=== PATIENT | female | born 1970 ===

== ENCOUNTER 2021-07-22 17:28 | Observation (INO) | payer OTHER ==
[~2021-07-22] VITALS: Ht 160 cm; Wt 67.9 kg
[2021-07-22 18:26] VITALS: BP 122/74; PULSE 64; TEMP 98
[2021-07-22] MEDS ORDERED: SYNTHROID0.125 MG/T PO (20:18)
[2021-07-22] MEDS ORDERED: ZOLOFT 100MG100 MG PO (20:19)
[2021-07-22] MEDS ORDERED: SEROQUEL400 MG (20:20)
[2021-07-22] MEDS ORDERED: AMBIEN 10MG10 MG PO (20:21)
[2021-07-22] MEDS ORDERED: ZESTRIL 10MG10 MG PO (20:21)
--- NOTE | 2021-07-22 20:25 | NUR ---
PT. ADMITTED AND ORIENTED TO ROOM 350. ASSESSMENT COMPLETE. PT. A&O. COMPLAINING OF ABDOMEN PAIN THAT RADIATES TO LOWER CHEST. PROVIDER HAS BEEN IN TO SEE PT. SEE ORDERS. CALL LIGHT IN REACH. NO FURHTER NEEDS AT THIS TIME.
[2021-07-22 23:40] VITALS: BP 99/59; PULSE 69; TEMP 98.7
[2021-07-22] MEDS ORDERED: SEROQUEL XR400 M1 PO (23:49)
[2021-07-22] MEDS ORDERED: PROTONIX 40MG T40 MG PO (23:51)
[2021-07-22] MEDS ORDERED: MAXALT MLT10 MG/TAB PO (23:52)
[2021-07-22] MEDS ORDERED: CLARITIN 1010 MG/TAB PO (23:52)
[2021-07-22 23:58] LABS: BASO % 0.2 % (0.0-2.0); EOS # 0.1 K/mm3 (0.0-0.7); EOS % 0.7 % (0.0-4.0); GRAN # 7.1 K/mm3 (1.4-6.5); GRAN % 63.8 % (42.2-75.2); HEMOGLOBIN 10.2 g/dl (12.5-16.0); LYMPH # 2.8 K/mm3 (1.2-3.4); LYMPH % 25.3 % (20.0-51.0); MEAN CELL VOLUME 84 fl (80.0-100.0); MEAN CORPUSCULAR HEMOGLOBIN 28 pg (27-31); MEAN CORPUSCULAR HGB CONC 33 g/dl (33.0-37.0); MEAN PLATELET VOLUME 8.7 fl (7.4-10.4); MONO % 9.2 % (1.7-9.3); PLATELET COUNT 347 K/mm3 (130-400); RED BLOOD COUNT 3.66 M/mm3 (4.10-5.30); REDCELL DISTRIBUTION WIDTH-CV 13.5 % (11.5-14.5)
[2021-07-23 00:09] LABS: HEMATOCRIT 30.7 % (37.0-47.0)
[2021-07-23 00:24] LABS: TROPONIN-I 0.013 ng/mL (0.00-0.033)
[2021-07-23 00:45] LABS: ALBUMIN 3.1 gm/dL (3.5-5.0); BILIRUBIN,TOTAL 0.2 mg/dL (0.2-1.2); CALCIUM 6.7 mg/dL (8.4-10.2); CREATININE, serum 0.72 mg/dL (0.57-1.11); TOTAL PROTEIN 6.4 gm/dL (6.2-8.1)
[2021-07-23 00:50] LABS: POTASSIUM 2.8 mmol/L (3.5-4.5)
--- NOTE | 2021-07-23 00:51 | NUR ---
LAB CALLED WITH [facility].8. RABIA WAS NOTIFIED AND ORDERS PLACED.
[2021-07-23 04:04] VITALS: BP 114/65; PULSE 63; TEMP 98.4
[2021-07-23 05:55] LABS: HEMOGLOBIN 11.1 g/dl (12.5-16.0); MEAN CELL VOLUME 85 fl (80.0-100.0); MEAN CORPUSCULAR HEMOGLOBIN 28 pg (27-31); MEAN CORPUSCULAR HGB CONC 33 g/dl (33.0-37.0); MEAN PLATELET VOLUME 8.9 fl (7.4-10.4); PLATELET COUNT 396 K/mm3 (130-400); RED BLOOD COUNT 4.01 M/mm3 (4.10-5.30); REDCELL DISTRIBUTION WIDTH-CV 13.6 % (11.5-14.5)
[2021-07-23 06:03] LABS: HEMATOCRIT 34.2 % (37.0-47.0)
[2021-07-23 06:27] LABS: ALBUMIN 3.1 gm/dL (3.5-5.0); BILIRUBIN,TOTAL 0.2 mg/dL (0.2-1.2); CALCIUM 6.6 mg/dL (8.4-10.2); CREATININE, serum 0.75 mg/dL (0.57-1.11); POTASSIUM 3.7 mmol/L (3.5-4.5); TOTAL PROTEIN 6.5 gm/dL (6.2-8.1)
[2021-07-23 07:06] LABS: BAND 3 % (0-10); EOSINOPHIL 1 % (0-4); LYMPHOCYTE 25 % (20.0-51.0); METAMYELOCYTE 1 % (0-0); NEUTROPHILS 62 % (42.0-75.2)
[2021-07-23 07:07] LABS: PLATELET ESTIMATE NORMAL (NORMAL)
[2021-07-23 07:16] VITALS: BP 125/74; PULSE 858; TEMP 98
--- NOTE | 2021-07-23 07:33 | NUR ---
Patient to [facility] scan per orders. She has been NPO. She reports feeling terrible this am. Zofran given prior to scan, unable to given narcotics per protocol. She was up to the bathroom & voided. Will monitor.
--- NOTE | 2021-07-23 09:45 | NUR ---
Patient has returned from scan. made aware, also dicussed holding lovenox with him. poultry service technician also made aware of her return. Patient did receive pain medication while in scan. She reports is helped with her abdominal pain, but she still has head and neck pain, k pad provided for her and blinds closed to make room dark. Continue with k+ replacement, at half rate due to burning at IV site from K+. She remains Npo, am medication held, patietn thinks she would vomit them up anyways. Will monitor closely.
--- NOTE | 2021-07-23 11:44 | NUR ---
rounded. Plan of care reviewed. Attempted to give magic mouthwash, but did nauseated patient. Patient reports Kpad helped with her migraine, she did not want immetrex at this time that was ordered. Made her aware of stool sample ordered. Clear liquids ordered, sprite provided per request. Ivf K+ replacement continues as well and antibioitcs as ordered. Ekg completed, scho to be done, chest xray to be done as well.
[2021-07-23 11:47] VITALS: BP 129/77; PULSE 69; TEMP 98.3
--- NOTE | 2021-07-23 15:30 | NUR ---
Patient resting in bed. Her spouse at bedside. Dr. Matthews & have rounded, plan of care reviewed. Last bag of K+ given. will reschedule, K+ level check. Patient has tolerated clears without emesis, but did request zofran. Will continue to monitor.
[2021-07-23 16:00] VITALS: BP 121/79; PULSE 86; TEMP 98.7
--- NOTE | 2021-07-23 16:29 | NUR ---
floorworker lasting met with patient to complete intake. Patients Alexis ([phone]) present at bedside. Patient is independent with her ADL's and does not utilize any DME to assist with mobility. No home oxygen needs. She primary care's at [facility] and she gets her perscriptions at [facility]. Patient does not have a DPOA-HC established and is not interested in establishing one at this time.Patient is planning on returning home with no concerns. Discharge plan: Home
--- NOTE | 2021-07-23 18:14 | NUR ---
Patient resting in bed. Scds off at this time due to being hot. She was up to the bathroom & voided. We discussed importance of using IS to keep lungs clear, she verbalized understanding & going to try to use more regularly. Sprite provided, broth did not settle. She denies the need for pain & nausea medication at this time. Will report off to nightnurse
[2021-07-23 19:55] VITALS: BP 140/77; PULSE 63; TEMP 98.8
--- NOTE | 2021-07-23 20:46 | NUR ---
ASSSESSMENT COMPLETE. PT. LYING IN BED. A&O. IV SITE PATENT WITH FLUIDS, POTASSIUM, AND ANTIBIOTIC FLOWING. PT. WALKED TO BATHROOM TO VOID. STEADY GAIT. PT. EXPRESSED DESIRE TO REST. NO FURHTER NEEDS AT THIS TIME. CALL LIGHT IN REACH.
[2021-07-24 00:31] VITALS: BP 117/62; PULSE 61; TEMP 98.7
[2021-07-24 04:18] VITALS: BP 115/70; PULSE 59; TEMP 99
[2021-07-24 06:10] LABS: BASO % 0.2 % (0.0-2.0); EOS # 0.2 K/mm3 (0.0-0.7); EOS % 2.1 % (0.0-4.0); GRAN # 5.5 K/mm3 (1.4-6.5); GRAN % 62.9 % (42.2-75.2); HEMOGLOBIN 11.3 g/dl (12.5-16.0); LYMPH # 2.2 K/mm3 (1.2-3.4); MEAN CELL VOLUME 85 fl (80.0-100.0); MEAN CORPUSCULAR HEMOGLOBIN 28 pg (27-31); MEAN CORPUSCULAR HGB CONC 32 g/dl (33.0-37.0); MEAN PLATELET VOLUME 8.7 fl (7.4-10.4); MONO # 0.8 K/mm3 (0.1-0.6); PLATELET COUNT 391 K/mm3 (130-400); REDCELL DISTRIBUTION WIDTH-CV 13.5 % (11.5-14.5)
[2021-07-24 06:26] LABS: ALBUMIN 2.9 gm/dL (3.5-5.0); BILIRUBIN,TOTAL 0.3 mg/dL (0.2-1.2); C-REACTIVE PROTEIN 5.55 mg/dL (0.00-0.50); CALCIUM 7.2 mg/dL (8.4-10.2); CREATININE, serum 0.67 mg/dL (0.57-1.11); MAGNESIUM 1.8 mg/dL (1.6-2.6); TOTAL PROTEIN 6.2 gm/dL (6.2-8.1)
[2021-07-24 06:46] LABS: TSH w REFLEX 3.144 uIU/mL (0.350-4.940)
--- NOTE | 2021-07-24 07:37 | NUR ---
Patient stand by assist to the chair this am. Coughing & deep breathing & using Is encouraged. Patient interested in yogurt and or oatmeal this am. Nausea is improved. Pain also improved today, denies migraine but, slight headache. Also slight abdominal cramping, but not wanting medication this am. Sprite & ice chips provided. Overall patient in better spirits today. Will monitor
[2021-07-24 07:57] VITALS: BP 103/70; PULSE 76; TEMP 98.8
--- NOTE | 2021-07-24 09:26 | NUR ---
Patient continues to sit up in chair, she is slowly working on low fat breakfast. rounded plan of care reviewed. We discussed taking a shower today & she is intersted later. Will monitor.
--- NOTE | 2021-07-24 11:01 | NUR ---
Patient Iv to Int per orders. Patient up to shower, her brought fresh under garments. He is going to assist with shower. Patient provided with privacy. Will monitor.
[2021-07-24 12:00] VITALS: BP 108/71; PULSE 77; TEMP 98.2
--- NOTE | 2021-07-24 13:50 | NUR ---
Patient sitting up in chair. Low fat lunch ordered. Patient reports abdominal cramping, one tab norco given per request for the pain. She is concerned eating will make it worse. Patient Gi sample was sent to lab, reported positive to Edith dias & also made aware. I spoke with Nayeli in lab & Cdiff Toxin to be ran per to confirm. Will await the results
[2021-07-24 14:11] LABS: CLOSTRIDIUM DIFF A/B NEG; CLOSTRIDIUM DIFF A/B INTERP NonToxigenic C.diff
[2021-07-24 15:51] VITALS: BP 132/77; PULSE 64; TEMP 98.4
--- NOTE | 2021-07-24 18:13 | NUR ---
Patient up independent in room. Eating her low fat dinner tray. Sprite & ice water provided. No other needs. Will report off to nightnurse
[2021-07-24 20:05] VITALS: BP 120/75; PULSE 87; TEMP 98.1
--- NOTE | 2021-07-24 20:22 | NUR ---
ASSESSMENT COMPLETE. PT. SITTING UP IN BED. A&O. COMPLAINING OF PAIN 3/10 TO ABDOMEN. ANTIOBITICS FLOWING INTO RIGHT AC. REPORTED WALKING AROUND ROOM AND USING INCENTIVE SPIROMETER REGURALLY. NO FURTHER NEEDS AT THIS TIME. CALL LIGHT IN REACH.
[2021-07-25 00:10] VITALS: BP 106/63; PULSE 74; TEMP 97.6
[2021-07-25 04:38] VITALS: BP 121/69; PULSE 62; TEMP 98
--- NOTE | 2021-07-25 05:24 | NUR ---
PT. HAD A QUITE NIGHT SLEEPING. NO NEEDS THROUGHOUT THE NIGHT.
[2021-07-25 07:04] LABS: CREATININE, serum 0.63 mg/dL (0.57-1.11); POTASSIUM 3.9 mmol/L (3.5-4.5)
[2021-07-25 07:07] LABS: BASO % 0.3 % (0.0-2.0); EOS # 0.2 K/mm3 (0.0-0.7); EOS % 2.5 % (0.0-4.0); GRAN # 5.6 K/mm3 (1.4-6.5); GRAN % 59.2 % (42.2-75.2); HEMOGLOBIN 11.6 g/dl (12.5-16.0); LYMPH # 2.5 K/mm3 (1.2-3.4); LYMPH % 26.3 % (20.0-51.0); MEAN CELL VOLUME 84 fl (80.0-100.0); MEAN CORPUSCULAR HEMOGLOBIN 28 pg (27-31); MEAN CORPUSCULAR HGB CONC 33 g/dl (33.0-37.0); MEAN PLATELET VOLUME 8.8 fl (7.4-10.4); MONO % 10.8 % (1.7-9.3); PLATELET COUNT 422 K/mm3 (130-400); RED BLOOD COUNT 4.18 M/mm3 (4.10-5.30); REDCELL DISTRIBUTION WIDTH-CV 13.6 % (11.5-14.5)
[2021-07-25 07:36] LABS: HEMATOCRIT 34.9 % (37.0-47.0)
[2021-07-25] MEDS ORDERED: Dilaudid Inj IV (08:18)
[2021-07-25] MEDS ORDERED: FLAGYL500 MG PO (08:19)
[2021-07-25] MEDS ORDERED: [UNRECOGNIZED DRUG - OTHER] PO (08:19)
[2021-07-25] MEDS ORDERED: *Potassium Replaceme MC (08:19)
[2021-07-25] MEDS ORDERED: CIPRO 500MG TA500 MG PO (08:19)
--- NOTE | 2021-07-25 08:49 | NUR ---
Assessment completed, alert/oriented, vital signs stable, pain controlled, dima N/V/D, tolerating PO and has had breakfast, abd soft and BS+, has been by and patient has discharge orders, will get IV abx doses, she denies other needs at this time
[2021-07-25 08:59] VITALS: BP 118/64; PULSE 68; TEMP 98.5
--- NOTE | 2021-07-25 10:00 | NUR ---
Discharge order discussed with patient and her , isntructed to follow up with Surgery/ in 1 week, discussed meds and scripts provided for ABX, IV removed, instructed on low fat diet, she is ambulatory and I escorted them out the door
== END 2021-07-25 10:30 | disposition home or self-care (01) ==
LOC: MEDICAL 17:28 → SURG 18:19
PROVIDERS: Internal Medicine; Internal Medicine Gastroenterology; Nurse Practitioner Family; Physician Assistant; ADMIT Surgery
DX: K52.9 Noninfective gastroenteritis and colitis, unspecified (principal); K80.10 Calculus of gallbladder with chronic cholecystitis without obstruction; J90 Pleural effusion, not elsewhere classified; K85.90 Acute pancreatitis without necrosis or infection, unspecified; I10 Essential (primary) hypertension; E89.0 Postprocedural hypothyroidism; E83.51 Hypocalcemia; Z20.822 Contact with and (suspected) exposure to COVID-19; F42.9 Obsessive-compulsive disorder, unspecified; F90.9 Attention-deficit hyperactivity disorder, unspecified type; F32.A Depression, unspecified; G47.00 Insomnia, unspecified; E78.5 Hyperlipidemia, unspecified; G43.909 Migraine, unspecified, not intractable, without status migrainosus; Z79.899 Other long term (current) drug therapy; Z85.850 Personal history of malignant neoplasm of thyroid; Z79.890 Hormone replacement therapy; Z85.41 Personal history of malignant neoplasm of cervix uteri
CPT/HCPCS: 99223; 99232-AI; 99233-AI; A9284; A9537; G0378; J0744; J1170; J1650; J2270; J2405; J3480; J7030